=== PATIENT | female | born 1935 | race Caucasian/White ===

== ENCOUNTER → 2017-11-01 17:49 | Emergency (ER) | payer MEDICARE ==
--- NOTE | 2017-11-01 19:18 | ED ---
Upper Extremity Pain - HPI Summary HPI Summary: 82-year-old female presents with left hand bruising today. Her states that she fell onto her left hand. Her denies any head injury. He denies any loss of consciousness. She had a stroke and has a deficit on her left side. She does not have any functioning of her left hand. She does not have any sensation of her left hand baseline. She is on a blood thinner unknown which (is not warfarin). The area immediately swelled and bruising was noted. The family states that the swelling has actually decreased as they have been putting ice in the area. She denies any pain. - History of Current Complaint Chief Complaint: EDExtremityUpper Stated Complaint: FALL, LT HAND SWOLLEN Time Seen by Provider: 11/01/17 18:40 - Allergies/Home Medications Allergies/Adverse Reactions: Allergies Allergy/AdvReac Type Severity Reaction Status Date / Time Penicillins Allergy Unknown Verified 05/24/15 08:10 Reaction Details BEE STINGS Allergy Rash And Uncoded 05/24/15 08:10 Itching PMH/Surg Hx/FS Hx/Imm Hx Endocrine/Hematology History: Reports: Hx Anticoagulant Therapy Denies: Hx Diabetes Cardiovascular History: Reports: Hx Hypertension - ON DAILY MEDS Respiratory History: Comment Only: Other Respiratory Problems/Disorders - 2PPD SMOKER 60+ YEARS, USES SYMBACORT INHALER PRN History: Denies: Hx Dialysis, Hx Renal Disease Musculoskeletal History: Reports: Hx Arthritis - GENERALIZED, MOST JOINTS, DENIES PAIN TODAY Sensory History: Reports: Hx Cataracts - BILATERAL Opthamlomology History: Reports: Hx Cataracts - BILATERAL - Surgical History Surgery Procedure, Year, and Place: 1999 BILATERAL KNEE REPLACEMENTS [facility]. [facility] Hx Anesthesia Reactions: No Infectious Disease History: No Infectious Disease History: Denies: Traveled Outside the [place] in Last 30 Days - Family History Known Family History: Negative: Diabetes - Social History Alcohol Use: None Substance Use Type: Reports: None Smoking Status (MU): Heavy Every Day Tobacco Smoker Type: Cigarettes Amount Used/How Often: 2 PPD/ 60+ YEARS Have You Smoked in the Last Year: Yes Review of Systems Negative: Fever Negative: Chest Pain Negative: Shortness Of Breath Positive: Bruising - left wrist All Other Systems Reviewed And Are Negative: Yes Physical Exam Triage Information Reviewed: Yes Vital Signs On Initial Exam: Initial Vitals Temp Pulse Resp BP Pulse Ox 97.9 F 72 18 147/55 94 11/01/17 18:01 11/01/17 18:01 11/01/17 18:01 11/01/17 18:01 11/01/17 18:01 Vital Signs Reviewed: Yes Appearance: Positive: Well-Appearing Skin: Positive: Warm, Dry Head/Face: Positive: Normal Head/Face Inspection Eyes: Positive: Normal, Conjunctiva Clear Respiratory/Lung Sounds: Positive: Clear to Auscultation, Breath Sounds Present Cardiovascular: Positive: Normal, RRR Musculoskeletal: Positive: Strength/ROM Intact - passively, Edema Left - dorsal aspect with large hematoma present there, Other - good pulses, capilary refill< 2secs Neurological: Positive: Normal Diagnostics - Vital Signs Vital Signs Temp Pulse Resp BP Pulse Ox 11/01/17 18:01 97.9 F 72 18 147/55 94 - Laboratory Lab Statement: Any lab studies that have been ordered have been reviewed, and results considered in the medical decision making process. - Radiology wrist Xray Interpretation: No Acute Changes - IMPRESSION: 1. OSTEOPENIA. 2. ADVANCED OSTEOARTHRITIS. 3. FINDINGS SUGGESTIVE OF AN INFLAMMATORY ARTHROPATHY. 4. NO ACUTE OSSEOUS INJURY. THE DEGREE OF OSTEOPENIA MAY MAKE A NONDISPLACED FRACTURE RADIOGRAPHICALLY OCCULT. IF SYMPTOMS PERSIST, RECOMMEND REPEAT IMAGING. Radiology Interpretation Completed By: Radiologist Course/Dx - Course Course Of Treatment: 82-year-old female presents with left hand bruising today. Her states that she fell onto her left hand. Her denies any head injury. He denies any loss of consciousness. She had a stroke and has a deficit on her left side. She does not have any functioning of her left hand. She does not have any sensation of her left hand baseline. She is on a blood thinner unknown which. The area immediately swelled and bruising was noted. The family states that the swelling has actually decreased as they have been putting ice in the area. She denies any pain. on exam has large hematoma of left hand. capillary refill<2 secs, neg snuff box tenderness. X-rays normal. Will have patient continue ice and compression on the area. patient will follow up with primary. Patient family understands and agrees with plan. - Diagnoses Differential Diagnosis/HQI/PQRI: Positive: Contusion, Fracture (Closed), Hematoma Provider Diagnoses: Injury of left hand Discharge - Discharge Plan Condition: Good Disposition: HOME Patient Education Materials: Contusion in Adults (ED) Referrals: Filiberto Whitley MD [Primary Care Provider] - Additional Instructions: Place ice on area Take Tylenol for pain as needed every 6 hours Wrap area Follow up with primary within 5 days Return to ED if develop any new or worsening symptoms
--- NOTE | 2017-11-01 19:41 | RAD ---
HISTORY: Left hand injury COMPARISONS: None VIEWS: 4, Frontal, lateral, and oblique views of the left hand FINDINGS: BONE DENSITY: There is diffuse osteopenia. BONES: There is no displaced fracture. JOINTS: There is advanced osteoarthritis of the first CMC joint, the interphalangeal joints, and the scaphoid-trapezium articulation. There is ulnar subluxation of the third and fourth PIP joints. ALIGNMENT: There is no dislocation. SOFT TISSUES: Unremarkable. OTHER FINDINGS: None. IMPRESSION: 1. OSTEOPENIA. 2. ADVANCED OSTEOARTHRITIS. 3. FINDINGS SUGGESTIVE OF AN INFLAMMATORY ARTHROPATHY. 4. NO ACUTE OSSEOUS INJURY. THE DEGREE OF OSTEOPENIA MAY MAKE A NONDISPLACED FRACTURE RADIOGRAPHICALLY OCCULT. IF SYMPTOMS PERSIST, RECOMMEND REPEAT IMAGING.
[2017-11-01 19:51] VITALS: BP 0/0
== END | disposition home or self-care (01) ==
LOC: ED 17:49
DX: S69.92XA Unspecified injury of left wrist, hand and finger(s), initial encounter (principal); W19.XXXA Unspecified fall, initial encounter; Y92.9 Unspecified place or not applicable; I69.354 Hemiplegia and hemiparesis following cerebral infarction affecting left non-dominant side; M85.842 Other specified disorders of bone density and structure, left hand; M19.042 Primary osteoarthritis, left hand; M18.9 Osteoarthritis of first carpometacarpal joint, unspecified; F17.210 Nicotine dependence, cigarettes, uncomplicated; Z79.01 Long term (current) use of anticoagulants; Z88.0 Allergy status to penicillin
CPT/HCPCS: 99282

== ENCOUNTER 2018-04-16 11:29 | Emergency (ER) | payer MEDICARE ==
[2018-04-16 12:55] VITALS: BP 131/63
--- NOTE | 2018-04-16 13:16 | UC ---
Truncal Trauma HPI - History Of Current Complaint Chief Complaint: UCTrauma Stated Complaint: S/P FALL L RIBS PAIN Time Seen by Provider: 04/16/18 13:01 Hx Obtained From: Family/User Interface Engineer ?: No Onset/Duration: Lasting Days Onset Of Pain: Immediate Severity Initially: Moderate Severity Currently: Moderate Pain Intensity: 3 Mechanism Of Injury: Blunt Trauma Aggravating Factor(s): Movement Alleviating factor(s): Nothing Associated Signs And Symptoms: Positive: Negative - Allergies/Home Medications Allergies/Adverse Reactions: Allergies Allergy/AdvReac Type Severity Reaction Status Date / Time Penicillins Allergy Unknown Unknown Verified 04/16/18 12:56 Reaction Details BEE STINGS Allergy Rash And Uncoded 05/24/15 08:10 Itching PMH/Surg Hx/FS Hx/Imm Hx Previously Healthy: No Neurological History: CVA Other History Of: Anticoagulant Therapy - Surgical History Surgical History: Yes Surgery Procedure, Year, and Place: 1999 BIL[facility]AL [facility] REPLACEMENTS [facility]. [facility] - Family History Known Family History: Negative: Diabetes - Social History Alcohol Use: None Substance Use Type: None Smoking Status (MU): Heavy Every Day Tobacco Smoker Type: Cigarettes Amount Used/How Often: 2 PPD/ 60+ YEARS Have You Smoked in the Last Year: Yes Household Exposure Type: Cigarettes Review of Systems Constitutional: Negative Skin: Negative Eyes: Negative ENT: Negative Respiratory: Negative Cardiovascular: Negative Gastrointestinal: Negative Genitourinary: Negative Motor: Weakness - left sided hemiplegia Musculoskeletal: Decreased ROM - left shoulder Is Patient Immunocompromised?: No All Other Systems Reviewed And Are Negative: Yes Physical Exam Triage Information Reviewed: Yes Completion Of Physical Exam Limited Due To: Patient is uncooperative with exam Appearance: Thin, Cachectic Vital Signs: Initial Vital Signs Temp 36.3 C 04/16/18 12:46 Pulse 62 04/16/18 12:46 Resp 16 04/16/18 12:46 BP 131/63 04/16/18 12:46 Pulse Ox 96 04/16/18 12:46 Vital Signs Reviewed: Yes ENT: Positive: Normal ENT inspection Neck exam: Normal Neck: Positive: Supple Respiratory: Positive: Decreased breath sounds - decreased breath sounds left, Other: - tender lower left sided ribs Abdomen Description: Positive: Nontender Bowel Sounds: Positive: Present Musculoskeletal Exam: Normal Neurological Exam: Normal, Other - left sided hemiplegia Neurological: Positive: Alert Psychological: Positive: Normal Response To Family Truncal Trauma Course/Dx - Differential Dx/Diagnosis Provider Diagnoses: rib fracture, left sided atelectasis LLL, abdominal aortic aneurysm Discharge - Sign-Out/Discharge Documenting (check all that apply): Patient Departure - Discharge Plan Condition: Guarded Disposition: HOME Patient Education Materials: Nonruptured Abdominal Aortic Aneurysm (DC), Rib Fracture (ED), Atelectasis (ED) Referrals: Filiberto Whitley MD [Primary Care Provider] - Mikayla Overton MD [Medical Doctor] - - Billing Disposition and Condition Condition: GUARDED Disposition: Home
--- NOTE | 2018-04-16 13:44 | RAD ---
INDICATION: Left rib injury. COMPARISON: Comparison is made with a prior chest x-ray study from August 07, 2017. TECHNIQUE: 6 views of the left ribs and dual-energy PA views of the chest were obtained. FINDINGS: There is a nondisplaced fracture of the left posterior lateral lateral eighth rib. The heart is within normal limits in size. There is a tortuous ectatic thoracic aorta. There appears be an aneurysm of the abdominal aorta which is not well-defined on this study but measures approximately 7 cm in diameter. The lungs are underinflated. There are mild by basilar infiltrates suggestive of atelectasis. No pleural effusion or pneumothorax is seen. The results of this exam were called to the referring clinician. IMPRESSION: 1. LARGE ANEURYSM OF THE ABDOMINAL AORTA. RECOMMEND A CT OF THE ABDOMEN AND PELVIS FOR FURTHER EVALUATION. 2. NONDISPLACED FRACTURE OF THE LEFT EIGHTH RIB.
== END 2018-04-16 14:08 | disposition home or self-care (01) ==
LOC: UCCORT 11:29
DX: S22.32XA Fracture of one rib, left side, initial encounter for closed fracture (principal); W19.XXXA Unspecified fall, initial encounter; Y93.9 Activity, unspecified; Y92.9 Unspecified place or not applicable; J98.11 Atelectasis; I71.4 Abdominal aortic aneurysm, without rupture; Z88.0 Allergy status to penicillin; F17.210 Nicotine dependence, cigarettes, uncomplicated
CPT/HCPCS: 71111; 99211; G0463

== ENCOUNTER 2019-11-16 20:41 | Emergency (ER) | payer MEDICARE ==
[2019-11-16 20:54] VITALS: BP 173/74
--- NOTE | 2019-11-16 21:30 | UC ---
UC General HPI - HPI Summary HPI Summary: pantry chef reviewed - Cough started 4-5 days ago, becoming more congested, Hx COPD Presents today with granddaughter. C/o cough progressively worse last few days Sleeps in recliner but still coughs a lot, can not lean back to sleep. Not bringing anything up. No fever / chills. Granddaughter concerned that pt has either pneumonia / bronchitis Ms. Cota specifically denies palpitations / cp. No new GI / sx, but wears adult diaper d/t incontinence. + L side weakness s/p stroke, but no new p/d/w. No rash. Has not been eating well last couple days. No n/v. But spit up in [facility]. - History of Current Complaint Chief Complaint: UCRespiratory Stated Complaint: CONGESTION COUGH COPD Time Seen by Provider: 11/16/19 21:14 Hx Obtained From: Patient Pain Intensity: 0 - Allergy/Home Medications Allergies/Adverse Reactions: Allergies Allergy/AdvReac Type Severity Reaction Status Date / Time Penicillins Allergy Unknown Unknown Verified 11/16/19 20:54 Reaction Details BEE STINGS Allergy Rash And Uncoded 11/16/19 20:54 Itching Home Medications: Home Medications Lisinopril [Zestril 40 MG-] 40 mg PO DAILY 11/16/19 [History Confirmed 11/16/19] PMH/Surg Hx/FS Hx/Imm Hx Previously Healthy: No - see below Cardiovascular History: Cardiac Disease, Hypertension Respiratory History: COPD GI/ History: Other - incontinent Neurological History: CVA Other History Of: Anticoagulant Therapy - Surgical History Surgical History: Yes Surgery Procedure, Year, and Place: 1999 B[facility]AL [facility]EE REPLAC[facility]S [facility]. [place] [facility] - Family History Known Family History: Negative: Diabetes - Social History Alcohol Use: None Substance Use Type: None Smoking Status (MU): Light Every Day Tobacco Smoker Type: Cigarettes Amount Used/How Often: 2 PPD/ 60+ YEARS Have You Smoked in the Last Year: Yes Household Exposure Type: Cigarettes Review of Systems All Other Systems Reviewed And Are Negative: Yes Constitutional: Positive: Fatigue Skin: Positive: Negative - no new issues Eyes: Positive: Negative - no new issues ENT: Positive: Negative Respiratory: Positive: Cough Cardiovascular: Positive: Other - see hpi Gastrointestinal: Positive: Other - see hpi Genitourinary: Positive: Other - see hpi Motor: Positive: Other - see hpi Neurovascular: Positive: Other Musculoskeletal: Positive: Other: - see hpi Neurological/Mental Status: Positive: Other - see hpi Psychological: Positive: Negative Is Patient Immunocompromised?: No Physical Exam Triage Information Reviewed: Yes Appearance: Thin - sitting up in wheelchair answers some questions, appropriately looks tired Vital Signs: Initial Vital Signs Temp 98.8 F 11/16/19 20:49 Pulse 89 11/16/19 20:49 Resp 20 11/16/19 20:49 BP 173/74 11/16/19 20:49 Pulse Ox 93 11/16/19 20:49 Vital Signs Reviewed: Yes Eye Exam: Other - Left eye with yellow white drainage ENT: Positive: Pharyngeal erythema - mild post ph redness, no sores / exudates, Nasal congestion Neck exam: Other - + arthritic No evidence meningeal signs Respiratory Exam: Other - poor full inspiration scattered rhonchi no rtx no distress, but unable to sit back Cardiovascular Exam: Other - HR regular, correlates with radial pulse Abdomen Description: Positive: Nontender Bowel Sounds: Positive: Present Neurological Exam: Other - L hemiparesis O/w nonfocal acute findings Psychological: Positive: Normal Response To Family Skin Exam: Normal - nondiaphoretic no visible or reported rash Course/Dx - Course Course Of Treatment: FS glucose 115mg / dl Influenza a/b neg Chest xray - Wet read (radiology read tomorrow) - R pleural effusion While here in [facility], + spit up white sputum Reviewed xray with pt and granddaughter. Recommend evaluation / tx in ED. While understandably disappointed, they express understanding and agreement. EMS offered, but they will go to ED pov Spoke with Dr. Madrid (ED) approx 22:10. - Diagnoses Provider Diagnosis: Pleural effusion, Dyspnea Discharge ED - Sign-Out/Discharge Documenting (check all that apply): Patient Departure All imaging exams completed and their final reports reviewed: No - Discharge Plan Condition: Guarded Disposition: HOME-RECOMMEND TO ED Patient Education Materials: Dyspnea (ED) Referrals: Filiberto Whitley MD [Primary Care Provider] - Additional Instructions: Please go to the Emergency Department. Stop and call 911 if problems en route. - Billing Disposition and Condition Condition: GUARDED Disposition: Home-Recommend to ED
[2019-11-16 21:53] LABS: Influenza A Molecular Negative (Negative); Influenza B Molecular Negative (Negative)
--- NOTE | 2019-11-17 10:26 | UC ---
- Progress Note Progress Note: Final radiologist reading of chest x-ray from November 16, 2019 comes back as a findings suggest his of right basilar pneumonia. The provider that date described a right pleural effusion recommend a follow-up in the emergency department. Nursing to call patient inform them of the results and ensure that they were seen in the emergency department. Course/Dx - Diagnoses Provider Diagnoses: Pleural effusion, Dyspnea Discharge ED - Sign-Out/Discharge Documenting (check all that apply): Patient Departure All imaging exams completed and their final reports reviewed: Yes - Discharge Plan Condition: Guarded Disposition: HOME-RECOMMEND TO ED Patient Education Materials: Dyspnea (ED) Referrals: Filiberto Whitley MD [Primary Care Provider] - Additional Instructions: Please go to the Emergency Department. Stop and call 911 if problems en route. - Billing Disposition and Condition Condition: GUARDED Disposition: Home-Recommend to ED
== END 2019-11-16 22:13 | disposition home health service (06) ==
LOC: UCCORT 20:41
DX: J90 Pleural effusion, not elsewhere classified (principal); R06.00 Dyspnea, unspecified; R53.83 Other fatigue; J44.9 Chronic obstructive pulmonary disease, unspecified; I10 Essential (primary) hypertension; F17.210 Nicotine dependence, cigarettes, uncomplicated; Z88.0 Allergy status to penicillin; Z91.030 Bee allergy status; Z79.899 Other long term (current) drug therapy; Z86.73 Personal history of transient ischemic attack (TIA), and cerebral infarction without residual deficits; Z96.653 Presence of artificial knee joint, bilateral
CPT/HCPCS: 71046; 99212; G0463